=== PATIENT | male | born 1970 | race American Indian/Alaskan Native ===

== ENCOUNTER 2022-02-06 01:06 | Emergency (ER) | payer SELFPAY ==
[2022-02-06] MEDS ORDERED: ONDANSETRON 4 MG/2 ML INJ IV ONE (03:23)
[2022-02-06] MEDS ORDERED: SODIUM CHLORIDE 0.9% 1000 ML 1,000 ML IV ONE (03:23)
[2022-02-06 04:14] LABS: Basophils % (Auto) 0.5 % (0.0-1.8); Eosinophils % (Auto) 0.1 % (0.0-4.3); Hematocrit 38.2 % (35.5-45.6); Hemoglobin 12.4 gm/dl (11.8-15.2); Lymphocytes # (Auto) 1.9 K/mm3 (1.2-5.4); Lymphocytes % (Auto) 20.6 % (13.4-35.0); Mean Corpuscular HGB Conc 33 % (32-34); Mean Corpuscular Volume 87 fl (84-94); Monocytes # (Auto) 0.7 K/mm3 (0.0-0.8); Monocytes % (Auto) 7.9 % (0.0-7.3); Platelet Count 179 K/mm3 (140-440); Red Blood Count 4.38 M/mm3 (3.65-5.03)
[2022-02-06 04:33] LABS: Alanine Aminotransferase 20 units/L (7-56); Albumin 3.2 g/dL (3.9-5); Blood Urea Nitrogen 7 mg/dL (9-20); Calcium 8.5 mg/dL (8.4-10.2); Hemolysis Index 1
[2022-02-06 04:39] LABS: BUN/Creatinine Ratio 12
--- NOTE | 2022-02-06 04:54 | XRay Report ---
XR chest 1V ap INDICATION / CLINICAL INFORMATION: chest pain. COMPARISON: None available. FINDINGS: SUPPORT DEVICES: None. HEART /PULMONARY VASCULATURE: Cardiac enlargement. Pulmonary vasculature is mildly congested. LUNGS / PLEURA: Patchy bilateral perihilar opacities, right greater than left. No sizable pleural eff usion or pneumothorax. IMPRESSION: Patchy right greater than left perihilar airspace opacities, may reflect edema or pneumonia. Signer Name: Jonathon Taylor MD Signed: 02/06/2022 4:49 AM Workstation Name: [id number]
[2022-02-06] MEDS ORDERED: AZITHROMYCIN/NS 500 MG/250 ML 500 MG/250 ML BAG IV ONE (05:50)
[2022-02-06] MEDS ORDERED: cefTRIAXone/NS 1 GM/50 ML 1 GM/50 ML BAG IV ONE (05:50)
--- NOTE | 2022-02-06 05:54 | Emergency Department Report ---
<BRANDAN HUDSON - Last Filed: 02/06/22 05:49> ED N/V/D HPI - General Chief complaint: Nausea/Vomiting/Diarrhea Stated complaint: ABDOMINAL PAIN/HEMATEMESIS Time Seen by Provider: 02/06/22 03:23 Source: patient, EMS Mode of arrival: Stretcher Limitations: No Limitations - History of Present Illness Initial comments: Patient is a 52-year-old male with apparent history of coronary artery disease with stent placement who presents emergency department complaint of chest pain, abdominal pain. Patient is writhing in pain but cannot give much additional history. He states that he has not been drinking although the EMS report states that patient was drinking alcohol. - Related Data Allergies Allergy/AdvReac Type Severity Reaction Status Date / Time No Known Allergies Allergy Unverified 02/06/22 02:35 ED Review of Systems Comment: Unobtainable due to pts medical conditions ED Past Medical Hx - Past Medical History Previous Medical History?: Yes Hx Hypertension: Yes Hx Heart Attack/AMI: Yes Hx Diabetes: Yes - Surgical History Past Surgical History?: No - Social History Smoking Status: Current Every Day Smoker Substance Use Type: None ED Physical Exam - General Limitations: No Limitations General appearance: alert, in distress - Head Head exam: Present: atraumatic, normocephalic - Eye Eye exam: Present: normal appearance - ENT ENT exam: Present: mucous membranes dry - Neck Neck exam: Present: normal inspection - Respiratory Respiratory exam: Present: normal lung sounds bilaterally. Absent: respiratory distress - Cardiovascular Cardiovascular Exam: Present: regular rate, normal rhythm. Absent: systolic murmur, diastolic murmur, rubs, gallop - GI/Abdominal GI/Abdominal exam: Present: soft. Absent: distended, tenderness - Rectal Rectal exam: Present: deferred - Extremities Exam Extremities exam: Present: normal inspection - Back Exam Back exam: Present: normal inspection - Neurological Exam Neurological exam: Present: alert, altered - Psychiatric Psychiatric exam: Present: other (Unable to assess) - Skin Skin exam: Present: warm, dry, intact, normal color. Absent: rash ED Course - Reevaluation(s) Reevaluation #1: 02/06/22 05:51 Patient's chest x-ray shows possible pneumonia. Given his blood cultures, lactic acid and antibiotics are ordered. ED Medical Decision Making - Lab Data Result diagrams: 02/06/22 03:54 02/06/22 03:54 - EKG Data -: EKG Interpreted by Me EKG shows normal: sinus rhythm Rate: tachycardia No standard instances Rhythm: PVC's [place]/QRS: left axis deviation - Radiology Data Radiology results: report reviewed, image reviewed - Medical Decision Making Patient is a 52-year-old male presented emergency department with complaint of altered mental status, chest pain, abdominal pain. The report was that patient was drinking alcohol. Plan for work-up including chest x-ray, CT abdomen pelvis. Given his altered ental status a CT scan of the brain is also ordered. Disposition pending work-up. Differential includes gastritis, pancreatitis, ACS. ED Disposition Clinical Impression: Acute respiratory failure with hypoxia, New onset of congestive heart failure, Metabolic encephalopathy Disposition: ADMITTED INPATIENT Condition: Stable <PILI MUJICA - Last Filed: 02/06/22 11:19> ED Review of Systems ROS: Stated complaint: ABDOMINAL PAIN/HEMATEMESIS Other details as noted in HPI ED Course Vital Signs 02/06/22 02/06/22 02/06/22 02:00 03:10 03:16 Temperature 99.6 F Pulse Rate 109 H 109 H 108 H Respiratory 20 22 24 Rate Blood Pressure 153/106 Blood Pressure [Left] O2 Sat by Pulse 100 93 93 Oximetry 02/06/22 02/06/22 02/06/22 03:30 03:46 04:00 Temperature Pulse Rate 111 H 110 H Respiratory 16 18 22 Rate Blood Pressure 173/109 173/109 179/115 Blood Pressure [Left] O2 Sat by Pulse 96 94 80 L Oximetry 02/06/22 02/06/22 04:16 10:51 Temperature 97.2 F L Pulse Rate 128 H 102 H Respiratory 11 L 20 Rate Blood Pressure 179/115 Blood Pressure 180/124 [Left] O2 Sat by Pulse 95 97 Oximetry ED Medical Decision Making - Lab Data Result diagrams: 02/06/22 03:54 02/06/22 03:54 - Medical Decision Making Patient is a alert, awake and oriented x3. CT brain is negative for acute finding. CT abdomen is unremarkable. Chest x-ray showed pulmonary edema. Labs reviewed and showed a BNP of more than 2000. Patient is hypoxic 89% on room air improved to 96% on 4 L. Patient received Lasix 60 mg IV. I discussed the patient with Dr. Joshua, he agreed to admit the patient to medical service for further management. Critical Care Time: Yes Critical care time in (mins) excluding proc time.: 35 Critical care attestation.: If time is entered above; I have spent that time in minutes in the direct care of this critically ill patient, excluding procedure time. ED Disposition Is pt being admited?: Yes
--- NOTE | 2022-02-06 10:50 | Cat Scan Report ---
CT HEAD WITHOUT CONTRAST INDICATION / CLINICAL INFORMATION: Altered mental status. TECHNIQUE: All CT scans at this location are performed using CT dose reduction for ALARA by means of automated exposure control. COMPARISON: None available. FINDINGS: Motion artifact limits this exam. BRAIN PARENCHYMA: No acute intracranial hemorrhage. No evidence of recent infarct. No mass effect or midline shift. VENTRICULAR SYSTEM/EXTRA-AXIAL SPACES: Ventricles are normal for age. No extra-axial fluid collection . ORBITS: Normal as visualized. SKELETAL SYSTEM/SOFT TISSUES: Normal bones and soft tissues. PARANASAL SINUSES/MASTOID AIR CELLS: No significant abnormality. ADDITIONAL FINDINGS: None. IMPRESSION: 1. No acute intracranial abnormality. Signer Name: Nile Talbert MD Signed: 02/06/2022 10:45 AM Workstation Name: [id number]
--- NOTE | 2022-02-06 10:53 | Cat Scan Report ---
CT ABDOMEN AND PELVIS WITH CONTRAST INDICATION / CLINICAL INFORMATION: Nausea with vomiting, diarrhea. TECHNIQUE: Axial CT images were obtained through the abdomen and pelvis after 100 cc Omnipaque [address] scans at this location are performed using CT dose reduction for ALARA by means of automated exposure control. COMPARISON: None available. FINDINGS: Motion artifact limits this exam. LOWER CHEST: No significant abnormality. LIVER: No significant abnormality. GALLBLADDER: No significant abnormality. BILE DUCTS: No significant abnormality. PANCREAS: No significant abnormality. SPLEEN: No significant abnormality. ADRENALS: No significant abnormality. RIGHT KIDNEY/URETER: No significant abnormality. LEFT KIDNEY/URETER: No significant abnormality. STOMACH/SMALL BOWEL: No significant abnormality. COLON: No significant abnormality. APPENDIX: Not well-visualized. No acute inflammation is seen along the right lower quadrant to sugges t acute appendicitis. PERITONEUM: No free fluid. No free air. No fluid collection. LYMPH NODES: No significant adenopathy. VASCULATURE: No significant abnormality. URINARY BLADDER: No significant abnormality. REPRODUCTIVE ORGANS: No significant abnormality. ADDITIONAL FINDINGS: None. BONES: No acute findings. There is mild spondylosis. IMPRESSION: Limited exam due to motion artifact without acute findings to explain the patient's complaints. Signer Name: Nile Talbert MD Signed: 02/06/2022 10:48 AM Workstation Name: [id number]
[2022-02-06] MEDS ORDERED: FUROSEMIDE 40 MG/4 ML INJ IV ONE (10:56)
[2022-02-06 11:30] LABS: Bilirubin,Urine NEG (Negative); Blood,Urine NEG (Negative); Color,Urine Yellow (Yellow)
[2022-02-06 11:39] LABS: Amphetamine Screen,Urine Negative; Benzodiazepines Screen,Urine Negative; Cannabinoid Screen,Urine Negative; Methadone Screen,Urine Negative; Opiate Screen,Urine Negative
[2022-02-06 12:16] LABS: Cocaine Screen,Urine Positive
[2022-02-06] MEDS ORDERED: LISINOPRIL 10 MG TAB PO ONE (13:00)
[2022-02-06] MEDS ORDERED: METOPROLOL TARTRATE 50 MG TAB PO ONE (13:00)
[2022-02-06] MEDS ORDERED: amLODIPine 10 MG TAB PO ONE (14:00)
--- NOTE | 2022-02-06 15:33 | Consultation ---
History of Present Illness - Reason for Consult Consult date: 02/06/22 Medical Management Requesting physician: PILI MUJICA - History of Present Illness 52 YO Male with HTN, DM, Nicotine Dependence, Medication Noncompliance presents to ED for evaluation. Patient reports "I have been hanging out and I feel tired". Patient states that he feels "sluggish" after hanging out all night with friends drinking alcohol and ingesting cocaine. Patient's friends became concerned because they thought "he was sick". EMS was notified and the patient was subsequently transported to [facility] for further care and evaluation of the aforementioned symptoms. The patient was seen and evaluated in the emergency department. All lab and imaging studies reviewed. EKG did not reveal evidence of ischemia. Cardiac enzymes were negative. Patient found to have accelerated hypertension suspected secondary to medication noncompliance. Patient denies fever, chills, chest pain, palpitation, adductive cough, skin rash, recent ill contacts, trauma, or known exposure to COVID-19. Patient treated with medical optimization, diuretic therapy with resolution of symptoms. Patient medically optimized and back to usual state of health. Patient discharged home and instructed to follow-up primary care physician within 3 to 5 days with blood pressure log. Patient instructed to follow-up with primary care physician for all age-appropriate and risk factor appropriate screening tests. Patient counseled regarding cocaine cessation and alcohol cessation. Patient instructed to attend Alcoholics Anonymous meeting at discharge. Patient was instructed to seek outpatient drug dependence counseling. Past History Past Medical History: diabetes, hypertension, other (See HPI) Past Surgical History: No surgical history, Other (Reviewed) Social history: single, Lives alone Family history: diabetes, hypertension Medications and Allergies Allergies Allergy/AdvReac Type Severity Reaction Status Date / Time No Known Allergies Allergy Unverified 02/06/22 02:35 Home Medications Medication Instructions Recorded Confirmed Last Taken Type Aspirin 325 mg PO QDAY #30 tablet 02/06/22 Unknown Rx Furosemide [Lasix TAB] 40 mg PO QDAY #30 tablet 02/06/22 Unknown Rx Metoprolol [Lopressor TAB] 25 mg PO BID #60 tablet 02/06/22 Unknown Rx Simvastatin 40 mg PO DAILY #30 02/06/22 Unknown Rx amLODIPine 5 mg PO DAILY #30 tab 02/06/22 Unknown Rx lisinopriL [Zestril TAB] 10 mg PO QDAY #30 tablet 02/06/22 Unknown Rx Review of Systems Constitutional: no weight loss, no weight gain, no fever, no chills Ears, nose, mouth and throat: no ear pain, no ear discharge, no tinnitis, no decreased hearing, no nose pain, no nasal congestion Cardiovascular: no chest pain, no orthopnea, no palpitations, no syncope, no lightheadedness Respiratory: no cough, no cough with sputum, no excessive sputum, no hemoptysis, no shortness of breath, no dyspnea on exertion Gastrointestinal: no nausea, no diarrhea, no change in bowel habits, no hematemesis Genitourinary Male: no hematuria, no flank pain, no discharge, no urinary frequency, no urinary hesitancy, no nocturia, no incontinence Rectal: no pain, no incontinence, no bleeding Musculoskeletal: no neck stiffness, no neck pain, no arm numbness/tingling, no low back pain, no shooting leg pain Integumentary: no rash, no pruritis, no redness, no sores, no wounds Neurological: no head injury, no transient paralysis, no paralysis, no weakness, no parathesias, no numbness, no tingling, no syncope, no tremors, no ataxia Psychiatric: no anxiety, no memory loss, no change in sleep habits, no sleep disturbances, no hypersomnia, no change in appetite, no change in libido Endocrine: no cold intolerance, no heat intolerance, no polyphagia, no excessive thirst, no polydipsia, no nocturia, no flushing Hematologic/Lymphatic: no easy bruising, no easy bleeding, no lymphadenopathy Allergic/Immunologic: no urticaria, no allergic rhinitis, no wheezing, no persistent infections (Right cervical) Exam - Constitutional Vitals: Temp Pulse Resp BP Pulse Ox 97.2 F L 100 H 18 199/99 99 02/06/22 10:51 02/06/22 13:48 02/06/22 13:48 02/06/22 13:48 02/06/22 13:48 General appearance: Present: no acute distress, obese - EENT Eyes: Present: PERRL ENT: hearing intact, clear oral mucosa - Neck Neck: Present: supple, normal ROM - Respiratory Respiratory effort: normal Respiratory: bilateral: CTA - Cardiovascular Heart Sounds: Present: S1 & S2. Absent: rub, click - Extremities Extremities: pulses symmetrical, No edema Peripheral Pulses: within normal limits - Abdominal General gastrointestinal: Present: soft, non-tender, non-distended, normal bowel sounds Male genitourinary: Present: normal - Integumentary Integumentary: Present: clear, warm, dry - Musculoskeletal Musculoskeletal: gait normal, strength equal bilaterally - Psychiatric Psychiatric: appropriate mood/affect, intact judgment & insight - Neurologic Neurologic: CNII-XII intact, moves all extremities Results - Labs CBC & Chem 7: 02/06/22 03:54 02/06/22 03:54 Labs: Abnormal lab results 02/06/22 02/06/22 02/06/22 Range/Units 03:54 03:54 05:41 RDW 18.0 H (13.2-15.2) % [place] % (Auto) 7.9 H (0.0-7.3) % Seg Neutrophils % 70.9 H (40.0-70.0) % Sodium 135 L (137-145) mmol/L BUN 7 L (9-20) mg/dL Creatinine 0.6 L (0.8-1.3) mg/dL Glucose 131 H (75-100) mg/dL Total Bilirubin 1.30 H (0.1-1.2) mg/dL NT-Pro-B Natriuret Pep 2923 H (0-900) pg/mL Albumin 3.2 L (3.9-5) g/dL Lipase 7 L (13-60) units/L Assessment and Plan - Patient Problems (1) Cocaine dependence Status: Acute (2) Hypertension Status: Acute Qualifiers: Hypertension type: primary hypertension Qualified Code(s): I10 - Essential (primary) hypertension Plan to address problem: Patient instructed to resume prehospital antihypertensive therapy. Patient res tarted on antihypertensive regimen. Patient instructed to follow-up with primary care physician in 3 to 5 days with blood pressure log. (3) Noncompliance with medication regimen Status: Acute Plan to address problem: Patient counseled. Patient informed that continued noncompliance may result in worsening symptoms. Patient acknowledges understanding instructions. (4) Advance care planning Status: Acute Plan to address problem: Disease education data, care plan discussed, diagnoses discussed, prognosis discussed, patient is full code, +30 minutes. Patient acknowledges understanding and agreement with care plan. (5) Preventative health care Status: Acute Plan to address problem: Patient counseled regarding increase physical activity, balanced diet, low- cholesterol diet, risk factor reduction, smoking cessation, cocaine cessation, alcohol cessation. +30 minutes.
[2022-02-06 16:04] VITALS: BP 135/91
--- NOTE | 2022-02-09 18:35 | Electrocardiograph Report ---
[facility] Test Date: 2022-02-06 Test Time: 04:16:25 Pat Name: SHAWNA WILLIAM Department: Room: Gender: M [employer]ist [employer]: [employer] : 1970 Requested By: PILI MUJICA Order Number: [id number] Reading MD: Lenora Hays Measurements Intervals [place] Rate: 108 P: 58 MA: 140 QRS: 260 QRSD: 76 T: 68 QT: 362 QTc: 484 Interpretive Statements Sinus tachycardia with occasional PVC Right axis deviation Old inferior myocardial infarction Old anterior lateral Abnormal ECG No previous ECG available for comparison Electronically Signed On 02-09-2022 18:35:27 EDT by Lenora Hays
== END 2022-02-06 16:36 | disposition admitted as inpatient to this hospital (09) ==
LOC: ED 01:06
DX: J96.01 Acute respiratory failure with hypoxia (principal); I50.21 Acute systolic (congestive) heart failure; G93.41 Metabolic encephalopathy; I10 Essential (primary) hypertension; F17.200 Nicotine dependence, unspecified, uncomplicated; Z79.899 Other long term (current) drug therapy
CPT/HCPCS: 36415; 70450; 71045; 74177; 80053; 80307; 81001; 82140; 83690; 83880; 84484; 85025; 87040; 93005; 96361; 96365; 96368; 96375; 99285; J0456; J0696; J1940; J2405; J7030; Q9967; 80320; G0480